=== PATIENT | male | born 1995 | race African-American/Black ===

== ENCOUNTER 2024-04-02 18:15 | Emergency (ER) | payer OTHER ==
[~2024-04-02] VITALS: Ht 190.5 cm; Wt 93.7 kg
[2024-04-02 18:16] VITALS: BP 139/88; TEMP 98.8; O2SAT 99
== END 2024-04-03 02:53 | disposition left against medical advice (07) ==
LOC: M ED 18:15
DX: Z53.21 Procedure and treatment not carried out due to patient leaving prior to being seen by health care provider (principal)